=== PATIENT | male | born 1935 | race Caucasian/White ===

== ENCOUNTER 2016-12-11 06:24 | Day surgery (SDC) | payer MEDICARE, OTHER ==
[~2016-12-11 06:24] MED LIST: Acetaminophen TAB* 325 MG PO PRN; Buffered Lidocaine 0.9% SYRIN* 5 ML/SYR SYRINGE INTRADERM ONE
[2016-12-11] MEDS ORDERED: Cyclopentolate 1% OPTH.SOL* 2 ML BTL ONE (07:24)
[2016-12-11] MEDS ORDERED: Flurbiprofen 0.03% OPTH.SOL* 2.5 ML BTL ONE (07:24)
[2016-12-11] MEDS ORDERED: Buffered Lidocaine 0.9% SYRIN* 5 ML/SYR SYRINGE ONE (07:24)
[2016-12-11] MEDS ORDERED: Lidocaine 1% MPF* 2 ML VIAL ONE (07:24)
[2016-12-11] MEDS ORDERED: Phenylephrine 2.5% OPTH.SOL* 2 ML BTL ONE (07:24)
[2016-12-11] MEDS ORDERED: Povidone Iodine 5% OPTH* 30 ML BTL ONE (07:24)
[2016-12-11] MEDS ORDERED: Proparacaine 0.5% OPHTH.SOL* 15 ML BTL ONE (07:24)
[2016-12-11] MEDS ORDERED: acetaZOLAMIDE TAB* 250 MG ONE (07:24)
[2016-12-11] MEDS ORDERED: Neomycin/Polymy/Dex OPTH.SUSP* MAXITROL 0.1% 5 ML ONE (07:24)
[2016-12-11] MEDS ORDERED: Midazolam* 1 MG/ML 5 ML VIAL (5 MG) ONE (07:39)
[2016-12-11 08:32] VITALS: BP 122/69
--- NOTE | 2016-12-11 16:01 | OP ---
DATE OF OPERATION: 12/11/16 - [facility] DATE OF : 33 SURGEON: Sumit Cabrera MD PREOPERATIVE DIAGNOSIS: Cataract, left eye. POSTOPERATIVE DIAGNOSIS: Cataract, left eye. OPERATIVE PROCEDURE: Phacoemulsification, left eye with IOL. DESCRIPTION OF PROCEDURE: The patient was brought to the operating room after being given 1/2% Alcaine with epinephrine drops in the preoperative area. The eye was prepped and draped in the usual sterile fashion. Sterile drape and eyelid speculum were placed. Again, topical 1/2% Alcaine with epinephrine was given. A paracentesis incision was made at the 3 o'clock position with the No.75 blade. Clear cornea incision 2.2 x 2.2-mm was created at the 6 o'clock position starting at the anterior limbus using the 2.2-mm keratome. The anterior chamber was irrigated with 0.4 mL of 1% non-preservative intracameral lidocaine and filled with DisCoVisc. A capsulorrhexis was completed using the cystotome and the Utrata forceps. Hydrodissection was performed with balanced salt solution. The lens nucleus was removed with the Phacoemulsification handpiece without incident. Cortex was removed with the irrigation-aspiration handpiece. The capsular bag was re-inflated using DisCoVisc and an [id number] 23.5 Implant was inserted with the shooter. The irrigation-aspiration handpiece was used to remove all residual DisCoVisc. The eye was refilled with balanced salt solution and the wound checked and found to be watertight. Topical Maxitrol drops were given. [id number]/[facility] #: [id number] [facility]
== END 2016-12-11 08:15 | disposition home or self-care (01) ==
LOC: OREAST 06:24
PROVIDERS: ATTEND Specialist
DX: H25.12 Age-related nuclear cataract, left eye (principal); H40.053 Ocular hypertension, bilateral; H53.022 Refractive amblyopia, left eye; I48.0 Paroxysmal atrial fibrillation; E03.9 Hypothyroidism, unspecified; M19.90 Unspecified osteoarthritis, unspecified site; Z79.82 Long term (current) use of aspirin
CPT/HCPCS: A9270-GY; J2250; V2632

== ENCOUNTER 2016-12-25 08:33 | Day surgery (SDC) | payer MEDICARE, OTHER ==
[2016-12-25] MEDS ORDERED: Midazolam* 1 MG/ML 2 ML VIAL (2 MG) ONE (10:04)
[2016-12-25] MEDS ORDERED: Buffered Lidocaine 0.9% SYRIN* 5 ML/SYR SYRINGE ONE (10:08)
[2016-12-25] MEDS ORDERED: Lidocaine 1% MPF* 2 ML VIAL ONE (10:08)
[2016-12-25] MEDS ORDERED: Flurbiprofen 0.03% OPTH.SOL* 2.5 ML BTL ONE (10:08)
[2016-12-25] MEDS ORDERED: acetaZOLAMIDE TAB* 250 MG ONE (10:08)
[2016-12-25] MEDS ORDERED: Neomycin/Polymy/Dex OPTH.SUSP* MAXITROL 0.1% 5 ML ONE (10:08)
[2016-12-25] MEDS ORDERED: Cyclopentolate 1% OPTH.SOL* 2 ML BTL ONE (10:08)
[2016-12-25] MEDS ORDERED: Povidone Iodine 5% OPTH* 30 ML BTL ONE (10:08)
[2016-12-25] MEDS ORDERED: Phenylephrine 2.5% OPTH.SOL* 2 ML BTL ONE (10:08)
[2016-12-25] MEDS ORDERED: Proparacaine 0.5% OPHTH.SOL* 15 ML BTL ONE (10:08)
[2016-12-25 11:10] VITALS: BP 114/70
--- NOTE | 2016-12-25 12:12 | OP ---
DATE OF OPERATION: 12/25/2016. DATE OF : 1935. SURGEON: Sumit Cabrera M.D. PREOPERATIVE DIAGNOSIS: Cataract right eye. POSTOPERATIVE DIAGNOSIS: Cataract right eye. OPERATIVE PROCEDURE: Phacoemulsification right eye with IOL. PROCEDURE: The patient was brought to the operating room after being given 1/2% Alcaine with epinep hrine drops in the preoperative area. The eye was prepped and draped in the usual sterile fashion. Sterile drape and eyelid speculum were placed. Again, topical 1/2% Alcaine with epinephrine was gi sara. A paracentesis incision was made at the 9 o'clock position with the No.75 blade. Clear cornea incision 2.2 x 2.2-mm was created at the 12 o'clock position starting at the anterior limbus using the 2.2-mm keratome. The anterior chamber was irrigated with 0.4 mL of 1% non-preservative intracam eral lidocaine and filled with DisCoVisc. A capsulorrhexis was completed using the cystotome and yared e Utrata forceps. Hydrodissection was performed with balanced salt solution. The lens nucleus was r emoved with the Phacoemulsification handpiece without incident. Cortex was removed with the irrigat ion-aspiration handpiece. The capsular bag was re-inflated using DisCoVisc and an [id number] implant was inserted with the shooter. The irrigation-aspiration handpiece was used to remove all residual DisCoVisc. The eye was refilled with balanced salt solution and the wound checked and found to be watertight. Topical Maxitrol drops were given. [id number]/[facility] #: [id number]
== END 2016-12-25 11:05 | disposition home or self-care (01) ==
LOC: OREAST 08:33
PROVIDERS: ATTEND Specialist
DX: H25.11 Age-related nuclear cataract, right eye (principal); E03.9 Hypothyroidism, unspecified; I48.2 Chronic atrial fibrillation
CPT/HCPCS: A9270-GY; J2250; V2632

== ENCOUNTER 2017-02-26 21:04 | Observation (INO) | payer MEDICARE, OTHER ==
[2017-02-27] MEDS ORDERED: Ondansetron INJ* 2 MG/ML VIAL IV ONE (01:06)
[2017-02-27] MEDS ORDERED: Meclizine TAB* 12.5 MG PO ONE (01:06)
[2017-02-27] MEDS ORDERED: NS 0.9% 1000 ML* 1,000 ML IV SCH (01:15)
[2017-02-27 01:52] LABS: Hematocrit 40 % (42-52); Hemoglobin 13.9 g/dl (14.0-18.0); Mean Corpuscular HGB Conc 35 g/dl (31-36); Mean Corpuscular Hemoglobin 32 pg (27-31); Mean Corpuscular Volume 94 fL (80-94); Mean Platelet Volume 8 um3 (7.4-10.4); Red Blood Count 4.28 10^6/ul (4.0-5.4); Red Cell Distribution Width 13 % (10.5-15); White Blood Count 11.3 10^3/ul (3.5-10.8)
[2017-02-27 02:05] LABS: Albumin 4.3 g/dL (3.2-5.2); BUN/Creatinine Ratio 22.8 (8-20); C Reactive Protein 1.54 mg/L (< 5.00); Calcium 8.7 mg/dL (8.6-10.3); EGFR African American 120.8 (>60); EGFR Non-African American 93.9 (>60); Globulin 2.9 g/dL (2-4); Magnesium 1.9 mg/dL (1.9-2.7); Total Bilirubin 0.5 mg/dL (0.2-1.0); Total Protein 7.2 g/dL (6.4-8.9)
[2017-02-27 02:08] LABS: Troponin I 0.01 ng/mL (<0.04)
[2017-02-27 02:29] LABS: TSH (Thyroid Stimulating Horm) 2.63 mcIU/mL (0.34-5.60)
[2017-02-27 02:34] LABS: Urine Bilirubin Negative (Negative); Urine Glucose 2+(150 mg/dL) (Negative); Urine Nitrite Negative (Negative)
[2017-02-27] MEDS ORDERED: Levothyroxine TAB* 25 MCG TAB PO ONE (06:17)
[2017-02-27] MEDS ORDERED: Aspirin TAB* 325 MG PO ONE (06:23)
[2017-02-27] MEDS ORDERED: Meclizine TAB* 12.5 MG PO PRN (06:46)
[2017-02-27] MEDS ORDERED: Ondansetron INJ* 2 MG/ML VIAL IV PRN (06:46)
[2017-02-27] MEDS ORDERED: Levothyroxine TAB* 50 MCG TAB PO ONE (07:00)
--- NOTE | 2017-02-27 07:23 | ED ---
Doris Bowser Abhishek, scribed for Abhishek Camarena MD on 02/27/17 at 0216 . Neurological HPI - HPI Summary HPI Summary: This patient is a 81 year old M presenting to [facility] accompanied with male and female with a chief complaint of vertigo since 1902 at rest at onset. Pt was stationary at onset. The CC is described as acute and episode is ongoing. Pt states he was wobbly on his feet and felt "uneasy" in his abd. The patient rates the pain 0/10 in severity. Symptoms aggravated by lying down and movement. Symptoms alleviated by nothing. Patient reports abd pain, tachycardia , and elevated bp above baseline, slightly ambulatory, dehydrated, dry mouth, and improvement in condition since 1902 (169/89 bp, 100 bpm, at 1902 time; 150/ 79 bp, 78 bpm at 2030 time). Patient denies CP, SOB, room was not spinning,, AMEZCUA, sore throat, ear ache, palpitations, and facial drooping. Pt is on blood thinners (ASA) PMHx includes arthritic back, AFib, hyperthyroidism, and ocular hypertension. SHx includes cataract surgery. - History of Current Complaint Chief Complaint: EDDizziness Stated Complaint: HIGH BLOOD PRESSURE/DIZZY Time Seen by Provider: 02/27/17 00:47 Hx Obtained From: Patient, Family/Label Cutter Onset/Duration: Sudden Onset - acute, Started hours ago - 1902 on 02/26/17 Timing: Constant Current Severity: None Pain Intensity: 0 Aggravating: Exertion - Movement, Position Change/Supine to Erect - Lying down Alleviating: Nothing - Allergy/Home Medications Allergies/Adverse Reactions: Allergies Allergy/AdvReac Type Severity Reaction Status Date / Time No Known Allergies Allergy Verified 12/25/16 08:52 PMH/Surg Hx/FS Hx/Imm Hx Endocrine/Hematology History: Reports: Hx Thyroid Disease - hyperthyroidism; ON MEDS Cardiovascular History: Reports: Hx Atrial Fibrillation Musculoskeletal History: Reports: 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 T AND A A CHILD Hx Anesthesia Reactions: No Infectious Disease History: No Infectious Disease History: Denies: Traveled Outside the [place] in Last 30 Days - Family History Known Family History: Positive: Cardiac Disease, Other - Stroke (mother) - Social History Alcohol Use: None Substance Use Type: Reports: None Smoking Status (MU): Never Smoked Tobacco Review of Systems Positive: Other - Dehydration Eyes: Negative Positive: Other - Dry mouth Positive: Palpitations - 100 bpm, Other - Elevated bp above baseline Respiratory: Negative Positive: Other - Pt states "uneasy" in the abd Genitourinary: Negative Positive: Other - abd pain. slightly ambulatory Skin: Negative Neurological: Other - Vertigo since 1902 at rest. Pt states wobbly on his feet. " All Other Systems Reviewed And Are Negative: Yes - Comments Additional Review of Systems Comments: Pt states improvement in condition since 1902 (169/89 bp, 100 bpm, at 1903 time ; 150/79 bp, 78 bpm at 2030 time Negative CP, SOB, AMEZCUA, sore throat, ear ache, palpitations, and facial drooping. Pt also states room was not spinning." Physical Exam - Summary Physical Exam Summary: General: well-appearing, no pain distress Skin: warm, color reflects adequate perfusion, dry Head: normal Eyes: EOMI, TIN, Cataract lens implants in both eyes, no nystagmus ENT: Cerumen in both ears, Neck: supple, nontender Respiratory: CTA, breath sounds present Cardiovascular: RRR Abdomen: soft, nontender Bowel: present Musculoskeletal: normal, strength/ROM intact Neurological: normal, sensory/motor intact, A&O x3,No focal neurological deficit. Psychological: affect/mood appropriate Triage Information Reviewed: Yes Vital Signs On Initial Exam: Initial Vitals Temp Pulse Resp BP Pulse Ox 97.4 F 81 16 151/71 97 02/26/17 21:07 02/26/17 21:07 02/26/17 21:07 02/26/17 21:07 02/26/17 21:07 Vital Signs Reviewed: Yes Diagnostics - Vital Signs Vital Signs Temp Pulse Resp BP Pulse Ox 02/26/17 21:07 97.4 F 81 16 151/71 97 - Laboratory Lab Results: Lab Results 02/27/17 02/27/17 02/27/17 Range/Units 01:32 01:32 01:32 WBC (3.5-10.8) 10^3/ul RBC (4.0-5.4) 10^6/ul Hgb (14.0-18.0) g/dl Hct (42-52) % MCV (80-94) fL MCH (27-31) pg MCHC (31-36) g/dl RDW (10.5-15) % Plt Count (150-450) 10^3/ul MPV (7.4-10.4) um3 Neut % (Auto) (38-83) % Lymph % (Auto) (25-47) % Aurora % (Auto) (1-9) % Eos % (Auto) (0-6) % Baso % (Auto) (0-2) % Absolute Neuts (auto) (1.5-7.7) 10^3/ul Absolute Lymphs (auto) (1.0-4.8) 10^3/ul Absolute Monos (auto) (0-0.8) 10^3/ul Absolute Eos (auto) (0-0.6) 10^3/ul Absolute Basos (auto) (0-0.2) 10^3/ul Absolute Nucleated RBC 10^3/ul Nucleated RBC % INR (Anticoag Therapy) 0.98 (0.89-1.11) APTT 28.1 (26.0-36.3) seconds Sodium 131 L (133-145) mmol/L Potassium 4.0 (3.5-5.0) mmol/L Chloride 101 (101-111) mmol/L Carbon Dioxide 22 (22-32) mmol/L Anion Gap 8 (2-11) mmol/L BUN 18 (6-24) mg/dL Creatinine 0.79 (0.67-1.17) mg/dL Est GFR ( Amer) 120.8 (>60) Est GFR (Non-Af Amer) 93.9 (>60) BUN/Creatinine Ratio 22.8 H (8-20) Glucose 149 H (70-100) mg/dL Lactic Acid (0.5-2.0) mmol/L Calcium 8.7 (8.6-10.3) mg/dL Magnesium 1.9 (1.9-2.7) mg/dL Total Bilirubin 0.50 (0.2-1.0) mg/dL AST 16 (13-39) U/L ALT 19 (7-52) U/L Alkaline Phosphatase 59 (34-104) U/L Total Creatine Kinase 58 (10-223) U/L CK-MB (CK-2) 2.5 (0.6-6.3) ng/mL Troponin I 0.01 (<0.04) ng/mL C-Reactive Protein 1.54 (< 5.00) mg/L B-Natriuretic Peptide 39 ( - 100) pg/mL Total Protein 7.2 (6.4-8.9) g/dL Albumin 4.3 (3.2-5.2) g/dL Globulin 2.9 (2-4) g/dL Albumin/Globulin Ratio 1.5 (1-3) Lipase 15 (11.0-82.0) U/L TSH 2.63 (0.34-5.60) mcIU/mL Urine Color Urine Appearance Urine pH (5-9) Ur Specific Savannah (1.010-1.030) Urine Protein (Negative) Urine Ketones (Negative) Urine Blood (Negative) Urine Nitrate (Negative) Urine Bilirubin (Negative) Urine Urobilinogen (Negative) Ur Leukocyte Esterase (Negative) Urine Glucose (Negative) Urine Ascorbic Acid (Negative) 02/27/17 02/27/17 02/27/17 Range/Units 01:32 01:32 02:15 WBC 11.3 H (3.5-10.8) 10^3/ul RBC 4.28 (4.0-5.4) 10^6/ul Hgb 13.9 L (14.0-18.0) g/dl Hct 40 L (42-52) % MCV 94 (80-94) fL MCH 32 H (27-31) pg MCHC 35 (31-36) g/dl RDW 13 (10.5-15) % Plt Count 195 (150-450) 10^3/ul MPV 8 (7.4-10.4) um3 Neut % (Auto) 90.6 H (38-83) % Lymph % (Auto) 6.7 L (25-47) % Aurora % (Auto) 2.3 (1-9) % Eos % (Auto) 0.1 (0-6) % Baso % (Auto) 0.3 (0-2) % Absolute Neuts (auto) 10.2 H (1.5-7.7) 10^3/ul Absolute Lymphs (auto) 0.8 L (1.0-4.8) 10^3/ul Absolute Monos (auto) 0.3 (0-0.8) 10^3/ul Absolute Eos (auto) 0 (0-0.6) 10^3/ul Absolute Basos (auto) 0 (0-0.2) 10^3/ul Absolute Nucleated RBC 0 10^3/ul Nucleated RBC % 0 INR (Anticoag Therapy) (0.89-1.11) APTT (26.0-36.3) seconds Sodium (133-145) mmol/L Potassium (3.5-5.0) mmol/L Chloride (101-111) mmol/L Carbon Dioxide (22-32) mmol/L Anion Gap (2-11) mmol/L BUN (6-24) mg/dL Creatinine (0.67-1.17) mg/dL Est GFR ( Amer) (>60) Est GFR (Non-Af Amer) (>60) BUN/Creatinine Ratio (8-20) Glucose (70-100) mg/dL Lactic Acid 2.1 H* (0.5-2.0) mmol/L Calcium (8.6-10.3) mg/dL Magnesium (1.9-2.7) mg/dL Total Bilirubin (0.2-1.0) mg/dL AST (13-39) U/L ALT (7-52) U/L Alkaline Phosphatase (34-104) U/L Total Creatine Kinase (10-223) U/L CK-MB (CK-2) (0.6-6.3) ng/mL Troponin I (<0.04) ng/mL C-Reactive Protein (< 5.00) mg/L B-Natriuretic Peptide ( - 100) pg/mL Total Protein (6.4-8.9) g/dL Albumin (3.2-5.2) g/dL Globulin (2-4) g/dL Albumin/Globulin Ratio (1-3) Lipase (11.0-82.0) U/L TSH (0.34-5.60) mcIU/mL Urine Color Yellow Urine Appearance Clear Urine pH 6.0 (5-9) Ur Specific [place]annah 1.014 (1.010-1.030) Urine Protein Negative (Negative) Urine Ketones Trace H (Negative) Urine Blood Negative (Negative) Urine Nitrate Negative (Negative) Urine Bilirubin Negative (Negative) Urine Urobilinogen Negative (Negative) Ur Leukocyte Esterase Negative (Negative) Urine Glucose 2+(150 mg/dl) H (Negative) Urine Ascorbic Acid * H (Negative) Result Diagrams: 02/27/17 01:32 02/27/17 01:32 Lab Statement: Any lab studies that have been ordered have been reviewed, and results considered in the medical decision making process. - Radiology CXR Xray Interpretation: No Acute Changes - NAD Radiology Interpretation Completed By: ED Physician - CT Brain CT CT Interpretation: No Acute Changes - No evidence of acute pathology. ED physician reviewed radiology report and agrees. CT Interpretation Completed By: Radiologist - EKG 0230 Cardiac Rate: NL - 83 bpm EKG Rhythm: Sinus Rhythm ST Segment: Normal Ectopy: None Course/Dx - Course Course Of Treatment: Medication reviewed. Elevated blood pressure noted. DIZZINESS AT REST IMPROVED BUT, GAIT STILL ABNORMAL. ADMIT HOSPITALIST. NO CRITICAL CARE TIME. - Diagnoses Provider Diagnoses: Dizziness, Balance problem Discharge - Discharge Plan Condition: Stable Disposition: ADMITTED TO [facility] Referrals: Jerry Savage MD [Primary Care Provider] - The documentation as recorded by the Doris pitts Abhishek accurately reflects the service I personally performed and the decisions made by , Abhishek Camarena MD.
--- NOTE | 2017-02-27 07:53 | RAD ---
HISTORY: Tachycardia, dizziness COMPARISONS: January 08, 2013 VIEWS: 3: frontal dual-energy view of the chest FINDINGS: CARDIOMEDIASTINAL SILHOUETTE: The cardiomediastinal silhouette is normal. ANGELES: The angeles are normal. PLEURA: The costophrenic angles are sharp. No pleural abnormalities are noted. LUNG PARENCHYMA: The lungs are clear. ABDOMEN: The upper abdomen is clear. There is no subphrenic gas. BONES AND SOFT TISSUES: Degenerative changes are noted OTHER: None. IMPRESSION: NO ACTIVE CARDIOPULMONARY DISEASE.
--- NOTE | 2017-02-27 07:54 | RAD ---
INDICATION: Dizziness. COMPARISON: There are no prior studies available for comparison. TECHNIQUE: Contiguous axial sections of the brain were obtained from the skull base to the vertex without contrast. FINDINGS: The ventricles, cisterns and sulci are within normal limits. No significant focal abnormality or mass effect is seen. There is no evidence for hemorrhage. No significant focal osseous abnormality is seen. The visualized portion of the paranasal sinuses and mastoid air cells appear clear. IMPRESSION: NO EVIDENCE FOR GROSS ACUTE INFARCT, MASS EFFECT OR HEMORRHAGE.
[2017-02-27 08:14] LABS: Hematocrit 41 % (42-52); Hemoglobin 14.1 g/dl (14.0-18.0); Mean Corpuscular HGB Conc 35 g/dl (31-36); Mean Corpuscular Hemoglobin 32 pg (27-31); Mean Corpuscular Volume 94 fL (80-94); Mean Platelet Volume 7 um3 (7.4-10.4); Red Blood Count 4.35 10^6/ul (4.0-5.4); Red Cell Distribution Width 13 % (10.5-15); White Blood Count 10.1 10^3/ul (3.5-10.8)
[2017-02-27] MEDS ORDERED: Aspirin EC Low Dose* 81 MG TAB.EC PO SCH (09:00)
[2017-02-27] MEDS ORDERED: Ascorbic Acid TAB* 500 MG PO SCH (09:00)
[2017-02-27] MEDS ORDERED: Potassium Chlor TAB* 10 MEQ TAB.ER PO SCH (09:00)
[2017-02-27] MEDS ORDERED: Multivitamins/Minerals TAB PO SCH (09:00)
[2017-02-27 09:04] LABS: BUN/Creatinine Ratio 19.4 (8-20); Calcium 8.5 mg/dL (8.6-10.3); EGFR African American 134.4 (>60); EGFR Non-African American 104.5 (>60); Potassium 4.1 mmol/L (3.5-5.0)
--- NOTE | 2017-02-27 09:52 | HP ---
CC: Dr. Savage; Dr. Sherwood * HISTORY AND PHYSICAL: DATE OF ADMISSION: 02/27/17 PRIMARY CARE DOCTOR: Dr. Savage SUPERVISOR MIRROR FABRICATION: Dr. Sherwood. CHIEF COMPLAINT: Dizziness. HISTORY OF PRESENT ILLNESS: Mr. Prakash is an 81-year-old male who stated that approximately 6:30 to 7:00 p.m. on the night prior to admission he began to develop a sensation of dizziness. When asked to clarify what he meant by dizziness, he stated that it was a feeling of unsteadiness while on his feet. Initially, he denied any spinning sensation. He also felt just not quite rest while sitting. Because of this, the patient decided to go to bed early. He asked the son to help him to bed and when he went to lie back, he had sudden severe sensation of spinning. The patient felt very nauseated with that. Ultimately, he presented to the emergency room for evaluation. In the ER, the patient received Zofran and meclizine. Overall, he is feeling better. However, he continues to feel a little bit off. The decision was made to road test the patient prior to making a decision for admission or discharge and when he got up to walk, he was very unsteady on his feet and leaning towards the right side. Because of this, the hospitalist service was asked to admit the patient. In addition to the dizzy complaint, the patient also was noted to have a fever in the emergency room to 100.3. Around that time, he also had shaking chills per the patient and his daughter. The patient denies any clear signs of infection at this point including cough with sputum production, vomiting, diarrhea, or dysuria. PAST MEDICAL HISTORY: 1. AFib. 2. Hypothyroidism. 3. History of B-cell lymphoma of the forehead. PAST SURGICAL HISTORY: 1. Cataract extraction bilaterally. 2. Left eye surgery for strabismus. MEDICATIONS: 1. Ascorbic acid 500 mg p.o. daily. 2. Atenolol 25 mg p.o. daily p.r.n. AFib. 3. Aspirin 81 mg p.o. daily. 4. Potassium chloride 20 mEq p.o. daily. 5. Fish oil 600 mg p.o. daily. 6. Multivitamin 1 tab p.o. daily. 7. Synthroid 50 mcg p.o. daily. 8. Vitamin B12 500 mcg p.o. Friday, Friday, Friday, and Friday. ALLERGIES: No known drug allergies. FAMILY HISTORY: Mon at the age of 57 of heart disease. Dad at the age of 60 of head and neck cancer. SOCIAL HISTORY: The patient is a nonsmoker. He does not drink alcohol. He worked at [employer]. He is . He had 4 children; one at the age of 13 months. His is his healthcare proxy. REVIEW OF SYSTEMS: No fevers, chills, or anorexia though he did have an episode of shaking while in the ER, which correlated with the fever of 100.3. No chest pain. No palpitations. No cough. No shortness of breath. No nausea, vomiting, abdominal pain. No dysuria. No focal weakness or sensory loss though while ambulating he was noted to be leaning to the right. No sudden changes in vision. He does complain of neck and lumbar pain, which is chronic. No rashes. No anxiety or depression. PHYSICAL EXAMINATION GENERAL: The patient is a well-developed, elderly male sitting in the stretcher in no acute distress. VITAL SIGNS: Blood pressure 155/73, pulse 87, respirations , temp 99.8, O2 sat 96% on room air. HEENT: Pupils are equal. They are round. They react to light. Extraocular muscles are intact. Oropharynx is clear. Oral mucosa is moist. There is no submandibular, cervical or supraclavicular adenopathy. Thyroid is not enlarged. No thyroid nodules are noted. PULMONARY: Lungs are clear to auscultation bilaterally. CARDIAC: Normal S1 and S2. Regular rate and rhythm. I do not appreciate any murmurs. ABDOMEN: Bowel sounds are present. Abdomen is soft, nontender, nondistended. MUSCULOSKELETAL: There is no cyanosis or clubbing of the digits. There is full active range of motion of all 4 extremities. SKIN: Warm and dry. There are no rashes. NEUROLOGIC: Cranial nerves II through XII are grossly intact. Sensation is intact to light touch throughout. Strength is 5/5 and symmetric in both upper and lower extremities bilaterally. The patient has intact rapid alternating movements of the hands. Heel-duke testing does reveal some unsteadiness with both extremities. PSYCH: The patient is alert. He is oriented x3. Affect appears appropriate. LABS: WBC 11.3, hemoglobin 13.9, hematocrit 40, platelets 195. INR 0.98, sodium 131, potassium 4.0, chloride 101, CO2 22, BUN 18, creatinine 0.79, glucose 149, lactic acid 2.1, calcium 8.7, magnesium 1.9, bilirubin 0.5, AST 16 , ALT 19, alk phos 59, CPK 58, CK-MB 2.5, troponin 0.01, CRP 1.54, BNP 39, albumin 4.3, lipase 15, TSH 2.63. Urinalysis reveals specific gravity of 1.014 , trace ketones, and 2+ glucose. EKG reveals normal sinus rhythm without any acute ST-T wave abnormalities, though there is a prolonged [place] interval. CT brain, no acute pathology. Chest x-ray on my interpretation appears to be clear. ASSESSMENT AND PLAN: Mr. Prakash is an 81-year-old male with a history of atrial fibrillation and hypothyroidism who presented to the emergency room with complaints of relatively sudden onset of unsteadiness with ambulation with an episode of what sounds to be benign positional vertigo. Now, he is being admitted for evaluation of the unsteadiness as a possible posterior circulation CVA. 1. Unsteadiness/vertigo. The patient did seem to improve some with meclizine however he still feels that he is not quite right. Given his history of atrial fibrillation, I do feel it is important to get an MRI to rule out a posterior circulation CVA. The patient already received aspirin in the emergency room. He will otherwise be maintained on his usual dose of baby aspirin. If his MRI does reveal evidence of a stroke, echocardiogram should be obtained. 2. Atrial fibrillation. Currently, the patient is in normal sinus rhythm. The patient tells me that he was never on full anticoagulation. He has only been on aspirin. If he does have evidence of stroke, a discussion will need to be had with the patient about starting full anticoagulation. 3. Fever and rigors. The patient in the emergency room was found to be febrile up to 100.3 with possible rigors. He had improvement of his temperature without any intervention. There are no clear signs of infection on exam or with his lab work to this point. His vital signs will need to be monitored and if he becomes febrile again, further investigation will need to be undertaken. 4. DVT prophylaxis: According to the Adult Thrombosis Prophylaxis Risk Factor Assessment Guide, the patient has a total risk factor score of 4, making him high risk. He will be placed on Heparin 5000 units subcutaneous q.8 hours. 5. Code status is full. TIME SPENT: 65 minutes was spent admitting this patient. [id number]/[facility] #: [id number] [facility]
[2017-02-27 13:07] VITALS: BP 158/70
--- NOTE | 2017-02-27 13:13 | RAD ---
HISTORY: Dizziness, evaluate for posterior circulation stroke COMPARISONS: Head CT dated February 27, 2017 TECHNIQUE: The following sequences were obtained of the head: Sagittal T1-weighted images, axial T2-weighted images, coronal T2-weighted images, axial FLAIR images, axial susceptibility weighted images, axial T1-weighted images. Additionally, axial diffusion-weighted images were obtained with calculated apparent diffusion coefficients. FINDINGS: HEMORRHAGE/INFARCT: There is no hemorrhage or acute infarct. MASSES/SHIFT: There is no mass or shift. EXTRA-AXIAL SPACES/MENINGES: There are no extra-axial fluid collections. SULCI AND VENTRICLES: There is mild diffuse and proportional enlargement of the sulci and ventricles. CEREBRUM: There are multiple scattered small foci of elevated T2/FLAIR signal within the periventricular and subcortical white matter. BRAINSTEM: There are no focal parenchymal abnormalities. CEREBELLUM: There are no focal parenchymal abnormalities. The cerebellar tonsils are normal in size and position. SELLA: The sella is normal. PINEAL: The pineal region is clear. CP ANGLE/TEMPORAL BONES: The labyrinthine structures are grossly normal. VESSELS: Normal flow-voids are noted within the visualized vertebral vasculature. DIFFUSION ABNORMALITIES: There are no diffusion abnormalities. PARANASAL SINUSES/MASTOIDS: The paranasal sinuses are clear. ORBITS: The orbits are unremarkable. BONES AND SOFT TISSUE: No bone or soft tissue abnormalities are noted. OTHER: None IMPRESSION: 1. MILD DIFFUSE INVOLUTIONAL CHANGE WITH SCATTERED NONSPECIFIC WHITE MATTER CHANGES. 2. NO RESTRICTED DIFFUSION TO SUGGEST ACUTE INFARCT.
[2017-02-27] MEDS ORDERED: Heparin VIAL(*) 5000 UNITS/ML VIAL (FIVE THOUSAND) SUBCUT SCH (14:00)
--- NOTE | 2017-02-28 00:45 | DS ---
CC: Jerry Savage MD * DISCHARGE SUMMARY: DATE OF ADMISSION: 02/27/17 DATE OF DISCHARGE: 02/27/17 PRIMARY CARE PROVIDER: Jerry Savage MD. DISCHARGE PROVIDER: QAMAR Avery. SUPERVISING PHYSICIAN: Yamini Randhawa DO * (DICTATED BY QAMAR AVERY) PRIMARY DISCHARGE DIAGNOSIS: Dizziness. SECONDARY DISCHARGE DIAGNOSES: 1. Paroxysmal atrial fibrillation - sinus rhythm during his brief hospital stay. 2. Hypothyroidism with normal TSH. DISCHARGE MEDICATIONS: 1. Vitamin C 500 mg p.o. daily. 2. Aspirin 81 mg p.o. daily. 3. Atenolol 25 mg p.o. daily. 4. Vitamin B12, 500 mcg p.o. daily. 5. Levothyroxine 50 mcg p.o. daily. 6. Meclizine 25 mg p.o. q.8 hours as needed for dizziness. 7. Multivitamin 1 tablet p.o. daily. 8. Fish oil 600 mg p.o. daily. 9. Potassium chloride 20 mEq p.o. daily. MEDICATION CHANGES: P.r.n. meclizine. HOSPITAL IMAGING: Chest x-ray shows no acute process. CT brain shows no evidence for acute infarct, mass effect, or hemorrhage. MRI brain shows mild diffuse involutional change with scattered nonspecific white matter changes, but no restricted diffusion to suggest infarct. EKG demonstrates a sinus rhythm without acute ischemic changes. HOSPITAL COURSE: This is an 81-year-old gentleman with paroxysmal atrial fibrillation, for which he is not chronically anticoagulated as well as hypothyroidism who presented to the emergency department with complaints of dizziness. The patient stated that his dizziness developed rather acutely yesterday evening and he felt unsteady on his feet. He denies any recent illness. No fever, night sweats. No cough, shortness of breath, chest pain, no palpitations. No nasal congestion or sneezing. The patient subsequently reported to the emergency department for evaluation and received Zofran and meclizine and felt slightly better, but when attempting to ambulate in the emergency department, he was still quite unsteady on his feet and seemed to be leaning to 1 side and hospitalist care was asked to admit for a possible CVA workup. Initial labs showed a mild leukocytosis, mild hyponatremia, lactic acid of 2.1, and a normal urinalysis. He was in sinus rhythm in the emergency department and was admitted to the telemetry floor with continuous telemetry monitoring. He remained in sinus rhythm throughout his period of observation. His troponin was noted to be 0.01 and the patient denied any chest pain or palpitations. The patient states that his complaints of dizziness resolved rather spontaneously. Orthostatic vital signs were negative. He underwent MRI of the brain, which showed no evidence of acute infarct. Repeat labs showed resolution of his leukocytosis and improvement in lactic acid. Prior to discharge, the patient ambulated around the entire nursing unit and was noted to be stable on his feet without complaints of dizziness. DISPOSITION AND FOLLOWUP PLAN: The patient is being discharged to home. Etiology of his dizziness is not entirely clear, but there does not appear to be any acute life threatening pathology to explain his symptoms. This may be a result of some mild vertigo and the patient will be discharged with as needed meclizine. Recommend followup with his primary care provider within the next week to address this hospitalization and if he has any recurrence of symptoms. QAMAR AVERY [id number]/[facility] #: [id number] [place]
[2017-02-28] MEDS ORDERED: Levothyroxine TAB* 50 MCG TAB PO SCH (06:00)
[2017-02-28] MEDS ORDERED: Cyanocobalamin TAB* 500 MCG PO SCH (09:00)
== END 2017-02-27 16:03 | disposition home or self-care (01) ==
LOC: ED 21:04 → MEDTELE 02-27 06:20
PROVIDERS: ADMIT Hospitalist; ATTEND Internal Medicine
DX: R42 Dizziness and giddiness (principal); I48.0 Paroxysmal atrial fibrillation; R50.9 Fever, unspecified; E03.9 Hypothyroidism, unspecified; R10.9 Unspecified abdominal pain; Z79.82 Long term (current) use of aspirin; R94.31 Abnormal electrocardiogram [ECG] [EKG]; Z85.72 Personal history of non-Hodgkin lymphomas; Z79.899 Other long term (current) drug therapy
CPT/HCPCS: 36415; 70450; 70551; 71010; 80048; 80053; 81003; 82550; 82553; 83605; 83690; 83735; 83880; 84443; 84484; 85025; 85610; 85730; 86140; 93005; 96361; 96372; 96374; 99285; A9270-GY; G0378; J1644; J2405